=== PATIENT | male | born 1990 | race African-American/Black ===

== ENCOUNTER 2018-12-06 17:31 | Emergency (ER) | payer OTHER ==
[2018-12-06 19:11] LABS: #Eosinphils 0.1 thou/uL (0.0-0.7); #Lymphocytes 1.2 thou/uL (1.20-3.40); #Monocytes 0.5 thou/uL (0.11-0.59); #Neutrophils 11.2 thou/uL (1.40-6.50); %Basophils 0.3 % (0.0-1.0); %Eosinophils 0.4 % (0.0-10.0); %Lymphocytes 9.3 % (21.0-51.0); %Monocytes 3.6 % (0.0-10.0); %Neutrophils 86.4 % (42.0-75.0); Hemoglobin 15.3 g/dL (14.0-18.0); Mean Corpuscular Hemoglobin 29.5 pg (27.0-31.0); Mean Corpuscular Volume 92.3 fL (78.0-98.0); Mean Platelet Volume 10.1 fL (7.4-10.4); Platelet Count 223 thou/uL (130-400); RBC Distribution Width 12.3 % (11.5-14.5); Red Blood Cell (RBC) Count 5.17 mill/uL (4.70-6.10)
--- NOTE | 2018-12-06 19:24 | RAD ---
CHEST ONE VIEW: 12/06/18 INDICATION: Chest pain. IMPRESSION: No acute cardiopulmonary abnormality. COMMENTS: No comparisons are available. Lungs are clear. Heart size is normal. No pleural effusion or pneumotho rax is evident. No acute osseous abnormality is evident. POS: H
[2018-12-06 19:28] LABS: ALT (SGPT) 11 U/L (8-55); AST (SGOT) 15 U/L (5-34); Alkaline Phosphatase 65 U/L (40-150); Anion Gap 13 mmol/L (10-20); BUN (Urea Nitrogen) 14 mg/dL (8.9-20.6); Bilirubin, Total 0.7 mg/dL (0.2-1.2); CK (CPK) 130 U/L (30-200); Calc. Creatinine Clearance 0 mL/min (70-130); Calcium 10.5 mg/dL (7.8-10.44); Carbon Dioxide 28 mmol/L (22-29); Chloride 104 mmol/L (98-107); Estimated GFR-MDRD Greater than 90; Globulin 3.4 g/dL (2.4-3.5); Glucose 83 mg/dL (70-105); Potassium 4.5 mmol/L (3.5-5.1); Protein, Total 8.4 g/dL (6.0-8.3); Sodium 140 mmol/L (136-145)
[2018-12-06 21:12] LABS: Troponin I Less than 0.010 ng/mL (< 0.028)
--- NOTE | 2018-12-08 15:33 | EKG ---
Test Reason : CHEST PAIN Blood Pressure : / mmHG Vent. Rate : 064 BPM Atrial Rate : 064 BPM P-R Int : 160 ms QRS Dur : 094 ms QT Int : 388 ms P-R-T Axes : 081 068 051 degrees QTc Int : 400 ms Normal sinus rhythm with sinus arrhythmia Possible Left atrial enlargement No STEMI Borderline ECG Confirmed by DELICIA Doyle, ELIAZAR ([id number]), television news video editor CHUCHO DELACRUZ ([id number] on 12/08/2018 3:33:46 PM Referred By: Confirmed By:ELIAZAR NESBITT M.D.
== END 2018-12-06 22:22 ==
LOC: ERS 17:31
DX: R07.89 Other chest pain (principal); F43.10 Post-traumatic stress disorder, unspecified; Z79.899 Other long term (current) drug therapy
CPT/HCPCS: 36415; 71045; 80053; 82550; 84484; 85025; 85379; 93005; 96360; 96361